=== PATIENT | female | born 1990 | race Caucasian/White ===

== ENCOUNTER 2017-12-10 17:30 | Emergency (ER) | payer BC ==
[2017-12-10 17:36] VITALS: BP 133/79; PULSE 66; TEMP 98.4; BMI 20.1
--- NOTE | 2017-12-10 17:39 | PDOC ---
History of Present Illness - General Chief Complaint: Urinary Problem Stated Complaint: URINARY SX Time Seen by Provider: 12/10/17 17:38 History Source: Patient Exam Limitations: No Limitations - History of Present Illness Travel History: No Initial Comments: 12/10/17 18:17 27y F no pmhx presenst with complaint of dysuria/frequency/urgency since yesterday. Pt notse she also had been having b/l backpain since sunday and endorses nausea, generalized weakness. denies fevers. Pt notes ferquent episodes of UTI, sometimes after interoucrse but hasnt yet followed up with urology. associated with suprapubic abd pain, pt denies any vagina discharge, bleeding, diarrhea. Past History - Past Medical History Allergies/Adverse Reactions: Allergies Allergy/AdvReac Type Severity Reaction Status Date / Time No Known Allergies Allergy Verified 12/10/17 17:32 Home Medications: Ambulatory Orders Levonorgestrel [Mirena] 1 each IY ASDIR 12/10/17 Phenazopyridine HCl [Pyridium] 100 mg PO BID #2 tablet 12/10/17 Sulfamethoxazole/Trimethoprim [Bactrim Ds -] 1 tab PO BID #14 tablet 12/10/17 COPD: No Disorders: Yes (RECURRENT UTI'S) - Surgical History Appendectomy: Yes - Reproductive History Is Patient Now?: No - Suicide/Smoking/Psychosocial Hx Smoking History: Never smoked Have you smoked in the past 12 months: No Information on smoking cessation initiated: No Hx Alcohol Use: (social) Review of Systems - Review of Systems Able to Perform ROS?: Yes Comments:: 12/10/17 18:19 Constitutional - no reported Fever, Chills, HEENT: no reported vision changes, sore throat Respiratory: no reported cough, sob, hemoptysis Cardiac: no reported chest pain, palpitations, light headedness, leg swelling Abd/GI: no reported abd pain, nausea, vomiting, blood per rectum, melena, diarrhea : +dysuria, frequency, no reported discharge, bleeding Musculskelatal - no reported back pain, joint swelling skin - no reported bruising, erythema, rash neurological: no reported headache, numbness, focal weakness, tingling, ataxia, hematologic: no reported easy bruising, easy bleeding *Physical Exam - Vital Signs Last Vital Signs Temp Pulse Resp BP Pulse Ox 98.4 F 66 18 133/79 100 12/10/17 17:30 12/10/17 17:30 12/10/17 17:30 12/10/17 17:30 12/10/17 17:30 - Physical Exam Comments: 12/10/17 18:20 GENERAL: The patient is awake, alert, and fully oriented, Nontoxic - in no acute distress. HEAD: Normocephalic, atraumatic. ABDOMEN: Soft, mild suprabuic tenderness, normoactive bowel sounds. No guarding , no rebound. No CVA tenderness, mil parapsinal lumbar tenderness SKIN: Warm, Dry, normal turgor, Medical Decision Making - Medical Decision Making UA suggestive of UTI will treat with abx and have pt fu with pmd / uro return precautins were discussed *DC/Admit/Observation/Transfer Diagnosis at time of Disposition: Urinary tract infection Qualifiers: Urinary tract infection type: acute cystitis Hematuria presence: with hematuria Qualified Code(s): N30.01 - Acute cystitis with hematuria - Discharge Dispostion Disposition: HOME Condition at time of disposition: Stable Decision to Admit order: No - Prescriptions Prescriptions: Phenazopyridine HCl [Pyridium] 100 mg PO BID #2 tablet Sulfamethoxazole/Trimethoprim [Bactrim Ds -] 1 tab PO BID #14 tablet - Referrals Referrals: Billy Hutchinson MD [Staff Physician] - - Patient Instructions Printed Discharge Instructions: DI for Urinary Tract Infection (UTI) Additional Instructions: Return to the emergency department immediately with ANY new, persistent or worsening symptoms including any fevers, persistent back pain, persistent vomiting or any other concerns. You should start feeling better after possibly 2 days if you do not please follow-up with your doctor or back in the emergency department. Please consider following up with urology due to frequent urinary tract infections. Results were discussed with you. Please make sure your doctor reviews the results of your emergency evaluation. Print Language: ESTONIAN - Post Discharge Activity
[2017-12-10 17:48] LABS: PH,URINE 8.5 (4.5-8); URINE APPEARANCE Slightly; URINE BILIRUBIN Negative (NEGATIVE); URINE COLOR Amber; URINE GLUCOSE (UA) Negative (NEGATIVE); URINE KETONE Negative (NEGATIVE); URINE LEUK ESTERASE 3+ (NEGATIVE); URINE NITRITE Negative (NEGATIVE); URINE PROTEIN 1+ (NEGATIVE); URINE UROBILINOGEN 0.2 (0.2-1.0)
[2017-12-10 17:55] LABS: URINE WBC 60-100 (0-5)
[2017-12-10] MEDS ORDERED: SULFAMETHOXAZOLE/TRIMETHOPRIM 800MG/160MG D.S. TABLET PO ONE (18:22)
[2017-12-10] MEDS ORDERED: PHENAZOPYRIDINE HCL 100 MG TABLET (FP) PO SCH (18:30)
[2017-12-10] MEDS ORDERED: SULFAMETHOXAZOLE/TRIMETHOPRIM 800MG/160MG D.S. TABLET ONE (18:31)
[2017-12-10] MEDS ORDERED: PHENAZOPYRIDINE HCL 100 MG TABLET (FP) ONE (18:31)
== END 2017-12-10 18:50 | disposition home or self-care (01) ==
LOC: FER 17:30
DX: N30.01 Acute cystitis with hematuria (principal)
CPT/HCPCS: 36415; 81003; 81015; 84703; 87086; 87491; 87591; 99283-25